=== PATIENT | female | born 1985 | race Caucasian/White ===

== ENCOUNTER 2017-01-08 17:20 | Emergency (ER) | payer MEDICAID ==
[~2017-01-08] VITALS: Ht 161.3 cm; Wt 88.9 kg
[~2017-01-08 17:20] MED LIST: AMOX-291 PO; CARI350T PO; CITA40TA5 PO; DIAZ5TAB PO; DIAZ5TAB4 PO; DULO30CA2 PO; HYDR-882 PO; HYDR2TAB29 PO; METH4TAB2 PO; METH500T97 PO; MORP-52 PO; MORP30TA81 PO; OXYC-307 PO; OXYC20TA2 PO; OXYC30TA PO; PREG75CA PO; TRAM50TA2 PO
[2017-01-08 17:24] VITALS: BP 150/91
== END 2017-01-08 19:31 | disposition left against medical advice (07) ==
LOC: ED 19:25
DX: Z53.21 Procedure and treatment not carried out due to patient leaving prior to being seen by health care provider (principal)

== ENCOUNTER 2018-01-13 14:02 | Emergency (ER) | payer MEDICAID ==
[~2018-01-13] VITALS: Ht 162.6 cm; Wt 60.0 kg
[~2018-01-13 14:02] MED LIST changes: +HYDR-3653 PO; -HYDR-882 PO
[2018-01-13] MEDS ORDERED: ONDANSETRON 2MG/ML, 2ML IVPush ONE (14:30)
[2018-01-13] MEDS ORDERED: SODIUM CHLORIDE FLUSH 10ML SYR IVF ONE (14:30)
[2018-01-13] MEDS ORDERED: MORPHINE SULFATE 4 MG/ML, 1ML ONE ×2 (14:35→15:30)
[2018-01-13] MEDS ORDERED: ONDANSETRON 2MG/ML, 2ML ONE (14:35)
[2018-01-13] MEDS: MORPHINE SULFATE 4 MG/ML, 1ML IVPush PRN ×2 (14:42→15:34)
[2018-01-13 14:48] LABS: BASOPHILS # (AUTO) 0.05 x10^3/uL (0-0.1); BASOPHILS % (AUTO) 0 % (0-1); EOSINOPHILS # (AUTO) 0.13 x10^3/uL (0-0.4); EOSINOPHILS % (AUTO) 1 % (1-7); LYMPHOCYTES % (AUTO) 18 % (22-44); MD NO; MEAN CORPUSCULAR HEMOGLOBIN 27.2 pg (27.0-34.8); MEAN CORPUSCULAR HGB CONC 33.2 g/dL (32.4-35.8); MEAN CORPUSCULAR VOLUME 82.1 fL (80-100); MEAN PLATELET VOLUME 9.7 fL (7.4-10.4); MONOCYTES # (AUTO) 0.88 x10^3/uL (0.2-0.8); MONOCYTES % (AUTO) 7 % (2-9); NEUTROPHILS # (AUTO) 8.73 x10^3/uL (1.8-6.8); NEUTROPHILS % (AUTO) 73 % (42-75); PLATELET COUNT 278 x10^3/uL (130-400); RED BLOOD COUNT 4.77 x10^6/uL (3.82-5.3); RED CELL DISTRIBUTION WIDTH 15.8 % (9.6-15.2)
[2018-01-13 14:57] LABS: ALANINE AMINOTRANSFERASE 27 U/L (12-78); ALBUMIN 3.4 g/dL (3.4-5.0); ANION GAP 11 mmol/L (5-15); CALCIUM 8.2 mg/dL (8.5-10.1); CHLORIDE 110 mmol/L (98-107); CREATININE 1.05 mg/dL (0.55-1.02)
[2018-01-13 15:00] LABS: MICROSCOPIC AUTO
[2018-01-13 15:01] LABS: ALKALINE PHOSPHATASE 112 U/L (45-117); BILIRUBIN,TOTAL 0.4 mg/dL (0.2-1.0); TOTAL PROTEIN 6.9 g/dL (6.4-8.2)
[2018-01-13 15:04] LABS: CULTURE INDICATED? NO
[2018-01-13 16:45] VITALS: BP 116/72
== END 2018-01-13 16:48 | disposition home or self-care (01) ==
LOC: ED 16:42
DX: K86.1 Other chronic pancreatitis (principal); N13.2 Hydronephrosis with renal and ureteral calculous obstruction
CPT/HCPCS: 36415; 74176; 80053; 81001; 83690; 84703; 85025; 96374; 96375; 96376; 99285; J2405

== ENCOUNTER 2019-01-08 10:38 | Emergency (ER) | payer MEDICAID ==
[~2019-01-08] VITALS: Ht 160 cm; Wt 87.1 kg
--- NOTE | 2019-01-08 11:14 | NUR ---
THIS IS A 33Y F THAT COMES IN FOR SINUS PAIN AND FACIAL SWELLING X1 WEEK. PT DENIES RECENT ILLNESS OR TRAUMA. PT STATES BLURRED VISION IN L EYE X2 DAYS. PT CONNECTED TO MONITORING VSS CALL LIGHT WITHIN REACH. DAUGHTER AT BEDSIDE.
--- NOTE | 2019-01-08 11:14 | NUR ---
PA AT BEDSIDE TO ASSESS PT
[2019-01-08 11:16] VITALS: BP 119/70
[2019-01-08] MEDS ORDERED: OXYcodone/APAP 5/325MG TABLET ONE (11:28)
[2019-01-08] MEDS ORDERED: ONDANSETRON ODT 4 MG ONE (11:28)
[2019-01-08] MEDS ORDERED: ONDANSETRON ODT 4 MG PO ONE (11:30)
[2019-01-08] MEDS ORDERED: OXYcodone/APAP 5/325MG TABLET PO ONE (11:30)
== END 2019-01-08 12:00 | disposition home or self-care (01) ==
LOC: ED 11:40
DX: J06.9 Acute upper respiratory infection, unspecified (principal); H05.012 Cellulitis of left orbit; R51 Headache; J45.909 Unspecified asthma, uncomplicated; F41.1 Generalized anxiety disorder; F17.210 Nicotine dependence, cigarettes, uncomplicated
CPT/HCPCS: 99283; Q0162

== ENCOUNTER 2019-01-18 00:05 | Inpatient (IN) | payer MEDICAID ==
[~2019-01-18] VITALS: Ht 160 cm; Wt 91.0 kg
[2019-01-18 01:41] LABS: BASOPHILS # (AUTO) 0.06 x10^3/uL (0-0.1); BASOPHILS % (AUTO) 1 % (0-1); EOSINOPHILS # (AUTO) 0.23 x10^3/uL (0-0.4); EOSINOPHILS % (AUTO) 3 % (1-7); LYMPHOCYTES # (AUTO) 3.62 x10^3/uL (1-3.4); LYMPHOCYTES % (AUTO) 40 % (22-44); MD NO; MEAN CORPUSCULAR HEMOGLOBIN 27.4 pg (27.0-34.8); MEAN CORPUSCULAR HGB CONC 32.3 g/dL (32.4-35.8); MEAN PLATELET VOLUME 9.6 fL (7.4-10.4); MONOCYTES # (AUTO) 0.76 x10^3/uL (0.2-0.8); MONOCYTES % (AUTO) 8 % (2-9); NEUTROPHILS # (AUTO) 4.47 x10^3/uL (1.8-6.8); NEUTROPHILS % (AUTO) 49 % (42-75); PLATELET COUNT 286 x10^3/uL (130-400); RED BLOOD COUNT 4.56 x10^6/uL (3.82-5.3)
[2019-01-18 01:55] LABS: ANION GAP 6 mmol/L (5-15); CALCIUM 8.8 mg/dL (8.5-10.1); CHLORIDE 105 mmol/L (98-107)
[2019-01-18] MEDS ORDERED: OXYcodone/APAP 5/325MG TABLET PO ONE (02:00)
--- NOTE | 2019-01-18 02:28 | NUR ---
PT BACK FROM CT SCAN. ASKING FOR PAIN MEDS.
[2019-01-18] MEDS ORDERED: VANCOMYCIN PER PHARMACY MC PRN ×3 (03:00→05:00)
[2019-01-18] MEDS ORDERED: MORPHINE SULFATE 4 MG/ML, 1ML ONE (03:00)
[2019-01-18] MEDS ORDERED: SODIUM CHLORIDE 0.9% 1,000ML IVBOLUS ONE (03:00)
[2019-01-18] MEDS ORDERED: MORPHINE SULFATE 4 MG/ML, 1ML IVPush PRN (03:00)
[2019-01-18] MEDS ORDERED: AMPICILLIN/SULBACTAM 3 GM in SODIUM CHLORIDE 0.9% 100 ML IV ONE (03:00)
[2019-01-18] MEDS ORDERED: ONDANSETRON 2MG/ML, 2ML IVPush ONE (03:00)
[2019-01-18] MEDS ORDERED: VANCOMYCIN 1,600 MG in SODIUM CHLORIDE 0.9% 250 ML IV ONE (03:30)
[2019-01-18] MEDS ORDERED: SODIUM CHLORIDE 0.9% 1,000 ML IV SCH (03:41)
[2019-01-18] MEDS ORDERED: morphine SULFATE 10 MG/ML, 1ML IVPush PRN (04:00)
[2019-01-18] MEDS ORDERED: ACETAMINOPHEN 325 MG TABLET PO PRN ×2 (04:00→05:00)
[2019-01-18] MEDS ORDERED: HYDROcodone/APAP 5/325 TABLET PO PRN (04:00)
[2019-01-18] MEDS ORDERED: ONDANSETRON 2MG/ML, 2ML IVPush PRN (04:00)
[2019-01-18 04:08] LABS: HCT (SEDRATE) 38.8 % (34.6-47.8)
--- NOTE | 2019-01-18 04:17 | NUR ---
PT TO MRI.
[2019-01-18] MEDS ORDERED: GADOTERATE 10 MMOL/20 ML SYR ONE (04:37)
[2019-01-18] MEDS ORDERED: AMPICILLIN/SULBACTAM 1,500 MG in SODIUM CHLORIDE 0.9% 50 ML IV SCH (05:00)
[2019-01-18] MEDS ORDERED: POLYETHYLENE GLYCOL 17 GM PACKET PO PRN (05:00)
[2019-01-18] MEDS ORDERED: PHARMACOKINETIC CONSULTATION MC ONE (06:00)
[2019-01-18] MEDS ORDERED: PHARMACOKINETIC MONITORING MC PRN (06:00)
[2019-01-18] MEDS ORDERED: VANCOMYCIN 1,600 MG in SODIUM CHLORIDE 0.9% 250 ML IV SCH (06:00)
[2019-01-18] MEDS ORDERED: OMNIPAQUE 350 MG/ML, 100ML BOTTLE ONE (06:23)
[2019-01-18 06:58] LABS: HEMOGLOBIN A1C 8.7 % (4.2-6.3)
[2019-01-18] MEDS: VANCOMYCIN 1,700 MG in SODIUM CHLORIDE 0.9% 250 ML IV SCH ×3 (07:06→22:00)
[2019-01-18] MEDS: SODIUM CHLORIDE 0.9% 1,000 ML IV SCH ×3 (07:06→22:01)
[2019-01-18] MEDS: HYDROcodone/APAP 5/325 TABLET PO PRN ×3 (07:33→22:00)
[2019-01-18] MEDS: CEFTRIAXONE PMX 2GM/50ML 50 ML IV SCH ×2 (08:54→18:46)
[2019-01-18] MEDS ORDERED: AMPICILLIN/SULBACTAM 3 GM in SODIUM CHLORIDE 0.9% 100 ML IV SCH (09:00)
[2019-01-18 14:00] VITALS: BP 102/70
[2019-01-18] MEDS ORDERED: INSULIN LISPRO 100 UNIT/ML, 3ML VIAL SQ-INSULIN PRN (15:30)
[2019-01-18] MEDS ORDERED: DEXTROSE 4 GM TAB.CHEW PO PRN (15:30)
[2019-01-18] MEDS ORDERED: DEXTROSE 50%, 50ML SYRINGE IVPush PRN (15:30)
[2019-01-18] MEDS ORDERED: GLUCAGON 1 MG IM PRN (15:30)
[2019-01-18] MEDS: ONDANSETRON 2MG/ML, 2ML IVPush PRN (16:18)
[2019-01-18 19:59] VITALS: BP 114/52
[2019-01-18] MEDS: SODIUM CHLORIDE FLUSH 10ML SYR IVF SCH (22:01)
[2019-01-19 01:59] VITALS: BP 96/64
[2019-01-19 06:15] LABS: BASOPHILS # (AUTO) 0.07 x10^3/uL (0-0.1); BASOPHILS % (AUTO) 1 % (0-1); EOSINOPHILS # (AUTO) 0.33 x10^3/uL (0-0.4); EOSINOPHILS % (AUTO) 4 % (1-7); LYMPHOCYTES # (AUTO) 3.33 x10^3/uL (1-3.4); LYMPHOCYTES % (AUTO) 41 % (22-44); MD NO; MEAN CORPUSCULAR HEMOGLOBIN 27.6 pg (27.0-34.8); MEAN CORPUSCULAR HGB CONC 32.2 g/dL (32.4-35.8); MEAN CORPUSCULAR VOLUME 85.5 fL (80-100); MEAN PLATELET VOLUME 10.2 fL (7.4-10.4); MONOCYTES # (AUTO) 0.64 x10^3/uL (0.2-0.8); MONOCYTES % (AUTO) 8 % (2-9); NEUTROPHILS # (AUTO) 3.78 x10^3/uL (1.8-6.8); NEUTROPHILS % (AUTO) 46 % (42-75); PLATELET COUNT 218 x10^3/uL (130-400); RED BLOOD COUNT 4.01 x10^6/uL (3.82-5.3); RED CELL DISTRIBUTION WIDTH 15.2 % (9.6-15.2)
[2019-01-19 06:17] LABS: HCG UR SG 1.039 (1.003-1.030)
[2019-01-19 06:24] LABS: ALANINE AMINOTRANSFERASE 41 U/L (12-78); ALBUMIN 2.7 g/dL (3.4-5.0); ANION GAP 4 mmol/L (5-15); CALCIUM 7.6 mg/dL (8.5-10.1); CHLORIDE 110 mmol/L (98-107); CHOLESTEROL, TOTAL 152 mg/dL (140-239); CREATININE 0.55 mg/dL (0.55-1.02)
[2019-01-19] MEDS: VANCOMYCIN 1,700 MG in SODIUM CHLORIDE 0.9% 250 ML IV SCH ×3 (06:24→22:22)
[2019-01-19 06:26] LABS: ALKALINE PHOSPHATASE 105 U/L (45-117); BILIRUBIN,TOTAL 0.1 mg/dL (0.2-1.0); CHOL/HDL RATIO 7.2; HDL CHOL % 14 % (28-40); HDL CHOLESTEROL (DIRECT) 21 mg/dL (40-60); LDL CHOLESTEROL,CALCULATED 92 mg/dL (54-169); LDL/HDL RATIO 4.4 (0.5-3.0); TOTAL PROTEIN 5.5 g/dL (6.4-8.2); TRIGLYCERIDES 197 mg/dL (50-200); VLDL CHOLESTEROL 39 mg/dL (0-25)
[2019-01-19] MEDS: CEFTRIAXONE PMX 2GM/50ML 50 ML IV SCH ×2 (08:06→19:33)
[2019-01-19] MEDS: SODIUM CHLORIDE FLUSH 10ML SYR IVF SCH (08:08)
[2019-01-19] MEDS: morphine SULFATE 10 MG/ML, 1ML IVPush PRN ×3 (08:31→18:34)
[2019-01-19 09:10] VITALS: BP 98/65
[2019-01-19] MEDS ORDERED: ONDANSETRON 2MG/ML, 2ML IV PRN (09:30)
[2019-01-19] MEDS ORDERED: LABETALOL 5MG/ML, 20ML IV PRN (09:30)
[2019-01-19] MEDS ORDERED: hydrALAzine 20 MG/ML, 1ML IV PRN (09:30)
[2019-01-19] MEDS ORDERED: ACETAMINOPHEN 325 MG TABLET PO PRN (09:30)
[2019-01-19] MEDS ORDERED: PROMETHAZINE 25 MG/ML, 1ML IV PRN (09:30)
[2019-01-19] MEDS ORDERED: HYDROmorphone 2 MG/ML, 1ML IVPush PRN (09:30)
[2019-01-19] MEDS ORDERED: MEPERIDINE/PF 25MG/ML,1ML IVPush PRN (09:30)
[2019-01-19] MEDS ORDERED: HYDROcodone/APAP 7.5-325MG/15ML UDC PO PRN (09:30)
[2019-01-19] MEDS ORDERED: EPHEDRINE 50 MG/ML, 1ML IVPush PRN (09:30)
[2019-01-19] MEDS ORDERED: FENTANYL PF 100 MCG/2ML IV PRN (09:30)
[2019-01-19] MEDS ORDERED: MIDAZOLAM 1 MG/ML, 2ML ONE (10:06)
[2019-01-19] MEDS ORDERED: FENTANYL PF 100 MCG/2ML ONE ×3 (10:06→11:27)
[2019-01-19] MEDS ORDERED: THROMBIN 5,000 UNIT VIAL TP ONE (10:13)
[2019-01-19] MEDS ORDERED: COCAINE TOPICAL SOLN 4%, 4ML ONE (10:13)
[2019-01-19] MEDS ORDERED: LIDOCAINE 1%-EPI 1:100K, 20ML ONE (10:14)
[2019-01-19] MEDS ORDERED: OXYMETAZOLINE NASAL SPRAY 0.05%, 15ML ONE (10:14)
[2019-01-19] MEDS ORDERED: LIDOCAINE 1%-EPI 1:100K, 20ML INFIL ONE (11:03)
[2019-01-19] MEDS ORDERED: GLYCOPYRROLATE 0.2MG/1ML, 5ML ONE (11:11)
[2019-01-19] MEDS ORDERED: CEFAZOLIN 1,000 MG ONE (11:11)
[2019-01-19] MEDS ORDERED: SUCCINYLCHOLINE 20 MG/ML, 10ML ONE (11:11)
[2019-01-19] MEDS ORDERED: ONDANSETRON 2MG/ML, 2ML ONE (11:11)
[2019-01-19] MEDS ORDERED: PROPOFOL 10 MG/ML, 20ML ONE (11:11)
[2019-01-19] MEDS ORDERED: DEXAMETHASONE 4 MG/ML, 1ML ONE (11:11)
[2019-01-19] MEDS ORDERED: ROCURONIUM 10MG/ML,5ML ONE (11:11)
[2019-01-19] MEDS ORDERED: KETOROLAC 30 MG/1 ML ONE (11:11)
[2019-01-19] MEDS ORDERED: NEOSTIGMINE 1 MG/ML, 10ML ONE (11:11)
[2019-01-19] MEDS ORDERED: EPHEDRINE 50 MG/ML, 1ML ONE (11:28)
[2019-01-19] MEDS: INSULIN LISPRO 100 UNITS/ML, PEN SQ-INSULIN PRN ×2 (13:08→17:13)
[2019-01-19] MEDS: SODIUM CHLORIDE 0.9% 1,000 ML IV SCH (14:00)
[2019-01-19 14:23] VITALS: BP 101/61
[2019-01-19] MEDS ORDERED: OXYMETAZOLINE NASAL SPRAY 0.05%, 15ML NAS PRN (15:00)
[2019-01-19] MEDS: SODIUM CHLORIDE NASAL SPRAY 45ML BOTTLE NAS SCH ×2 (18:34→21:00)
[2019-01-19 19:02] VITALS: BP 106/67
[2019-01-19] MEDS: SODIUM CHLORIDE FLUSH 3ML SYRINGE IVF SCH (19:38)
[2019-01-19] MEDS: HYDROcodone/APAP 5/325 TABLET PO PRN ×2 (22:23→23:01)
[2019-01-19 22:55] VITALS: BP 106/57
[2019-01-20 03:55] VITALS: BP_SYST 112; BP_SYST 86; BP_DIAS 58; BP_DIAS 73
[2019-01-20] MEDS: HYDROcodone/APAP 5/325 TABLET PO PRN ×3 (04:10→20:02)
[2019-01-20] MEDS: SODIUM CHLORIDE NASAL SPRAY 45ML BOTTLE NAS SCH ×4 (06:00→20:03)
[2019-01-20] MEDS: VANCOMYCIN 1,700 MG in SODIUM CHLORIDE 0.9% 250 ML IV SCH ×2 (06:39→14:48)
[2019-01-20 06:52] LABS: ANION GAP 3 mmol/L (5-15); CHLORIDE 110 mmol/L (98-107)
[2019-01-20 06:55] LABS: CALCIUM 8.4 mg/dL (8.5-10.1); CREATININE 0.69 mg/dL (0.55-1.02)
[2019-01-20 07:02] LABS: BASOPHILS # (AUTO) 0.02 x10^3/uL (0-0.1); BASOPHILS % (AUTO) 0 % (0-1); EOSINOPHILS # (AUTO) 0.12 x10^3/uL (0-0.4); EOSINOPHILS % (AUTO) 1 % (1-7); LYMPHOCYTES # (AUTO) 1.63 x10^3/uL (1-3.4); LYMPHOCYTES % (AUTO) 10 % (22-44); MD NO; MEAN CORPUSCULAR HEMOGLOBIN 27.5 pg (27.0-34.8); MEAN CORPUSCULAR HGB CONC 32.5 g/dL (32.4-35.8); MEAN CORPUSCULAR VOLUME 84.7 fL (80-100); MEAN PLATELET VOLUME 10.6 fL (7.4-10.4); MONOCYTES # (AUTO) 0.69 x10^3/uL (0.2-0.8); MONOCYTES % (AUTO) 4 % (2-9); NEUTROPHILS # (AUTO) 14.79 x10^3/uL (1.8-6.8); NEUTROPHILS % (AUTO) 86 % (42-75); PLATELET COUNT 268 x10^3/uL (130-400); RED BLOOD COUNT 3.94 x10^6/uL (3.82-5.3); RED CELL DISTRIBUTION WIDTH 14.6 % (9.6-15.2)
[2019-01-20 07:28] VITALS: BP 99/64
[2019-01-20] MEDS: INSULIN LISPRO 100 UNITS/ML, PEN SQ-INSULIN PRN ×3 (08:09→16:53)
[2019-01-20] MEDS: CEFTRIAXONE PMX 2GM/50ML 50 ML IV SCH ×2 (08:25→20:03)
[2019-01-20] MEDS: ENOXAPARIN 40 MG/0.4 ML SQ SCH (08:25)
[2019-01-20] MEDS: SODIUM CHLORIDE FLUSH 3ML SYRINGE IVF SCH ×2 (08:29→20:04)
[2019-01-20 13:59] VITALS: BP 102/66
[2019-01-20] MEDS: metroNIDAZOLE 500 MG TABLET PO SCH (18:45)
[2019-01-20 19:57] VITALS: BP 114/64
[2019-01-21 01:13] VITALS: BP 115/72
[2019-01-21] MEDS: metroNIDAZOLE 500 MG TABLET PO SCH ×3 (02:22→17:13)
[2019-01-21] MEDS: HYDROcodone/APAP 5/325 TABLET PO PRN ×5 (02:25→21:30)
[2019-01-21 06:12] LABS: BASOPHILS # (AUTO) 0.06 x10^3/uL (0-0.1); BASOPHILS % (AUTO) 1 % (0-1); EOSINOPHILS # (AUTO) 0.22 x10^3/uL (0-0.4); EOSINOPHILS % (AUTO) 2 % (1-7); LYMPHOCYTES # (AUTO) 3.46 x10^3/uL (1-3.4); LYMPHOCYTES % (AUTO) 32 % (22-44); MD NO; MEAN CORPUSCULAR HEMOGLOBIN 27.6 pg (27.0-34.8); MEAN CORPUSCULAR HGB CONC 32.1 g/dL (32.4-35.8); MEAN PLATELET VOLUME 10.6 fL (7.4-10.4); MONOCYTES # (AUTO) 0.64 x10^3/uL (0.2-0.8); MONOCYTES % (AUTO) 6 % (2-9); NEUTROPHILS # (AUTO) 6.62 x10^3/uL (1.8-6.8); NEUTROPHILS % (AUTO) 60 % (42-75); PLATELET COUNT 225 x10^3/uL (130-400); RED BLOOD COUNT 3.72 x10^6/uL (3.82-5.3); RED CELL DISTRIBUTION WIDTH 15.4 % (9.6-15.2)
[2019-01-21 06:52] VITALS: BP 112/77
[2019-01-21] MEDS: SODIUM CHLORIDE NASAL SPRAY 45ML BOTTLE NAS SCH ×4 (06:57→21:15)
[2019-01-21] MEDS: SODIUM CHLORIDE FLUSH 3ML SYRINGE IVF SCH ×2 (09:00→21:00)
[2019-01-21] MEDS: metFORMIN 500 MG TABLET PO SCH ×2 (09:10→17:13)
[2019-01-21] MEDS: ENOXAPARIN 40 MG/0.4 ML SQ SCH (09:10)
[2019-01-21] MEDS: CEFTRIAXONE PMX 2GM/50ML 50 ML IV SCH ×2 (09:11→21:15)
[2019-01-21 13:06] VITALS: BP 142/90
[2019-01-21] MEDS: IRON SUCROSE COMPLEX 100MG/5ML IV SCH (13:31)
[2019-01-21] MEDS: NICOTINE 14MG/24 HR PATCH.TD24 TD SCH (15:35)
[2019-01-21 19:40] VITALS: BP 135/78
[2019-01-22 00:58] VITALS: BP 116/79
[2019-01-22] MEDS: metroNIDAZOLE 500 MG TABLET PO SCH ×3 (02:35→17:55)
[2019-01-22] MEDS: HYDROcodone/APAP 5/325 TABLET PO PRN ×5 (02:37→22:03)
[2019-01-22] MEDS: SODIUM CHLORIDE NASAL SPRAY 45ML BOTTLE NAS SCH ×4 (06:45→21:24)
[2019-01-22 08:01] VITALS: BP 129/85
[2019-01-22] MEDS: ONDANSETRON 2MG/ML, 2ML IVPush PRN ×2 (08:16→21:24)
[2019-01-22] MEDS: metFORMIN 500 MG TABLET PO SCH ×2 (08:16→17:55)
[2019-01-22] MEDS: IRON SUCROSE COMPLEX 100MG/5ML IV SCH (08:16)
[2019-01-22] MEDS: ENOXAPARIN 40 MG/0.4 ML SQ SCH (08:17)
[2019-01-22] MEDS: SODIUM CHLORIDE FLUSH 3ML SYRINGE IVF SCH ×2 (08:17→21:00)
[2019-01-22] MEDS: CEFTRIAXONE PMX 2GM/50ML 50 ML IV SCH ×2 (09:38→21:24)
[2019-01-22 13:44] VITALS: BP 129/86
[2019-01-22] MEDS: NICOTINE 14MG/24 HR PATCH.TD24 TD SCH (15:57)
[2019-01-22 20:16] VITALS: BP 135/91
[2019-01-23] MEDS: metroNIDAZOLE 500 MG TABLET PO SCH ×3 (02:04→16:55)
[2019-01-23] MEDS: HYDROcodone/APAP 5/325 TABLET PO PRN ×5 (03:18→21:25)
[2019-01-23 03:22] VITALS: BP 146/92
[2019-01-23] MEDS: SODIUM CHLORIDE NASAL SPRAY 45ML BOTTLE NAS SCH ×4 (05:55→21:26)
[2019-01-23 08:25] VITALS: BP 129/86
[2019-01-23] MEDS: ENOXAPARIN 40 MG/0.4 ML SQ SCH (08:28)
[2019-01-23] MEDS: metFORMIN 500 MG TABLET PO SCH ×2 (08:29→16:55)
[2019-01-23] MEDS: IRON SUCROSE COMPLEX 100MG/5ML IV SCH (09:42)
[2019-01-23] MEDS: SODIUM CHLORIDE FLUSH 3ML SYRINGE IVF SCH ×2 (09:42→21:00)
[2019-01-23] MEDS: CEFTRIAXONE PMX 2GM/50ML 50 ML IV SCH ×2 (09:42→21:25)
[2019-01-23 14:08] VITALS: BP 132/85
[2019-01-23] MEDS: NICOTINE 14MG/24 HR PATCH.TD24 TD SCH (16:23)
[2019-01-23 21:07] VITALS: BP 135/85
[2019-01-23] MEDS: ONDANSETRON 2MG/ML, 2ML IVPush PRN (21:25)
[2019-01-24 02:30] VITALS: BP 138/78
[2019-01-24] MEDS: metroNIDAZOLE 500 MG TABLET PO SCH ×3 (02:32→16:52)
[2019-01-24] MEDS: HYDROcodone/APAP 5/325 TABLET PO PRN ×4 (02:35→22:05)
[2019-01-24] MEDS: SODIUM CHLORIDE NASAL SPRAY 45ML BOTTLE NAS SCH ×4 (05:29→20:57)
[2019-01-24] MEDS ORDERED: ACETAMINOPHEN 325 MG TABLET PO PRN (08:30)
[2019-01-24] MEDS: metFORMIN 500 MG TABLET PO SCH ×2 (08:35→16:52)
[2019-01-24] MEDS: FERROUS SULFATE 325 MG TABLET PO SCH ×2 (08:35→16:52)
[2019-01-24] MEDS: ENOXAPARIN 40 MG/0.4 ML SQ SCH (08:36)
[2019-01-24] MEDS: LISINOPRIL 5 MG TABLET PO SCH (08:36)
[2019-01-24] MEDS: IBUPROFEN 600 MG TABLET PO PRN ×3 (08:36→20:56)
[2019-01-24] MEDS: SODIUM CHLORIDE FLUSH 3ML SYRINGE IVF SCH ×2 (08:43→20:57)
[2019-01-24] MEDS: CEFTRIAXONE PMX 2GM/50ML 50 ML IV SCH ×2 (08:43→20:57)
[2019-01-24 09:34] VITALS: BP 113/74
[2019-01-24 13:10] VITALS: BP 128/81
[2019-01-24] MEDS: NICOTINE 14MG/24 HR PATCH.TD24 TD SCH (16:53)
[2019-01-24 19:27] VITALS: BP 120/81
[2019-01-25 01:36] VITALS: BP 117/78
[2019-01-25] MEDS: metroNIDAZOLE 500 MG TABLET PO SCH ×3 (02:21→18:03)
[2019-01-25] MEDS: IBUPROFEN 600 MG TABLET PO PRN ×4 (03:01→21:53)
[2019-01-25] MEDS: HYDROcodone/APAP 5/325 TABLET PO PRN ×5 (03:40→22:40)
[2019-01-25 04:20] LABS: BASOPHILS # (AUTO) 0.04 x10^3/uL (0-0.1); BASOPHILS % (AUTO) 1 % (0-1); EOSINOPHILS # (AUTO) 0.34 x10^3/uL (0-0.4); EOSINOPHILS % (AUTO) 4 % (1-7); LYMPHOCYTES # (AUTO) 3.01 x10^3/uL (1-3.4); LYMPHOCYTES % (AUTO) 38 % (22-44); MD NO; MEAN CORPUSCULAR HEMOGLOBIN 27.8 pg (27.0-34.8); MEAN CORPUSCULAR HGB CONC 32.2 g/dL (32.4-35.8); MEAN CORPUSCULAR VOLUME 86.4 fL (80-100); MEAN PLATELET VOLUME 10.1 fL (7.4-10.4); MONOCYTES # (AUTO) 0.73 x10^3/uL (0.2-0.8); MONOCYTES % (AUTO) 9 % (2-9); NEUTROPHILS # (AUTO) 3.72 x10^3/uL (1.8-6.8); NEUTROPHILS % (AUTO) 47 % (42-75); PLATELET COUNT 282 x10^3/uL (130-400); RED BLOOD COUNT 3.92 x10^6/uL (3.82-5.3); RED CELL DISTRIBUTION WIDTH 15.6 % (9.6-15.2)
[2019-01-25 04:24] LABS: CREATININE 0.59 mg/dL (0.55-1.02)
[2019-01-25] MEDS: SODIUM CHLORIDE NASAL SPRAY 45ML BOTTLE NAS SCH ×4 (05:23→21:12)
[2019-01-25 06:51] VITALS: BP 117/80
[2019-01-25] MEDS: metFORMIN 500 MG TABLET PO SCH ×2 (08:51→17:05)
[2019-01-25] MEDS: FERROUS SULFATE 325 MG TABLET PO SCH ×2 (08:51→17:05)
[2019-01-25] MEDS: LISINOPRIL 5 MG TABLET PO SCH (08:51)
[2019-01-25] MEDS: ENOXAPARIN 40 MG/0.4 ML SQ SCH (08:51)
[2019-01-25] MEDS: CEFTRIAXONE PMX 2GM/50ML 50 ML IV SCH ×2 (08:53→21:11)
[2019-01-25] MEDS: SODIUM CHLORIDE FLUSH 3ML SYRINGE IVF SCH ×2 (08:53→21:00)
[2019-01-25 14:19] VITALS: BP 119/83
[2019-01-25] MEDS: NICOTINE 14MG/24 HR PATCH.TD24 TD SCH (15:43)
[2019-01-25 19:51] VITALS: BP 122/86
[2019-01-25] MEDS: hydrOXyzine 50MG TABLET PO PRN (21:53)
[2019-01-26] MEDS: metroNIDAZOLE 500 MG TABLET PO SCH ×3 (02:04→16:44)
[2019-01-26 02:11] VITALS: BP 142/94
[2019-01-26] MEDS: SODIUM CHLORIDE NASAL SPRAY 45ML BOTTLE NAS SCH ×4 (06:21→21:07)
[2019-01-26] MEDS: IBUPROFEN 600 MG TABLET PO PRN ×2 (08:15→19:29)
[2019-01-26] MEDS: LISINOPRIL 5 MG TABLET PO SCH (08:16)
[2019-01-26] MEDS: ENOXAPARIN 40 MG/0.4 ML SQ SCH (08:16)
[2019-01-26] MEDS: FERROUS SULFATE 325 MG TABLET PO SCH ×2 (08:16→16:45)
[2019-01-26] MEDS: metFORMIN 500 MG TABLET PO SCH ×2 (08:16→16:45)
[2019-01-26 08:31] VITALS: BP 128/79
[2019-01-26] MEDS: HYDROcodone/APAP 5/325 TABLET PO PRN ×3 (09:01→20:56)
[2019-01-26] MEDS: CEFTRIAXONE PMX 2GM/50ML 50 ML IV SCH ×2 (09:01→20:57)
[2019-01-26] MEDS: SODIUM CHLORIDE FLUSH 3ML SYRINGE IVF SCH ×2 (09:02→20:58)
[2019-01-26 12:50] VITALS: BP 131/81
[2019-01-26] MEDS: NICOTINE 14MG/24 HR PATCH.TD24 TD SCH (15:17)
[2019-01-26 19:24] VITALS: BP 134/87
[2019-01-26] MEDS: hydrOXyzine 50MG TABLET PO PRN (21:08)
[2019-01-27] MEDS: metroNIDAZOLE 500 MG TABLET PO SCH ×2 (01:05→10:10)
[2019-01-27] MEDS: HYDROcodone/APAP 5/325 TABLET PO PRN ×2 (01:05→08:33)
[2019-01-27 02:09] VITALS: BP 133/87
[2019-01-27] MEDS: SODIUM CHLORIDE NASAL SPRAY 45ML BOTTLE NAS SCH ×2 (07:24→11:00)
[2019-01-27] MEDS: IBUPROFEN 600 MG TABLET PO PRN (07:24)
[2019-01-27 07:40] VITALS: BP 125/81
[2019-01-27] MEDS: ENOXAPARIN 40 MG/0.4 ML SQ SCH (08:30)
[2019-01-27] MEDS: FERROUS SULFATE 325 MG TABLET PO SCH (08:33)
[2019-01-27] MEDS: LISINOPRIL 5 MG TABLET PO SCH (08:33)
[2019-01-27] MEDS: metFORMIN 500 MG TABLET PO SCH (08:33)
[2019-01-27] MEDS: CEFTRIAXONE PMX 2GM/50ML 50 ML IV SCH (08:34)
[2019-01-27] MEDS: SODIUM CHLORIDE FLUSH 3ML SYRINGE IVF SCH (08:34)
[2019-01-27] MEDS ORDERED: LISI5TAB7 PO (10:45)
[2019-01-27] MEDS ORDERED: METF500T PO (10:51)
[2019-01-27 12:40] LABS: ALANINE AMINOTRANSFERASE 45 U/L (12-78); ALBUMIN 3.4 g/dL (3.4-5.0); ANION GAP 8 mmol/L (5-15); C-REACTIVE PROTEIN, QUANT 0.81 mg/dL (0.02-0.49); CALCIUM 8.8 mg/dL (8.5-10.1); CHLORIDE 109 mmol/L (98-107)
[2019-01-27 12:41] LABS: CREATININE 0.57 mg/dL (0.55-1.02)
[2019-01-27 12:42] LABS: ALKALINE PHOSPHATASE 93 U/L (45-117); BASOPHILS # (AUTO) 0.07 x10^3/uL (0-0.1); BASOPHILS % (AUTO) 1 % (0-1); BILIRUBIN,TOTAL 0.3 mg/dL (0.2-1.0); EOSINOPHILS # (AUTO) 0.42 x10^3/uL (0-0.4); EOSINOPHILS % (AUTO) 5 % (1-7); LYMPHOCYTES # (AUTO) 2.57 x10^3/uL (1-3.4); LYMPHOCYTES % (AUTO) 30 % (22-44); MD NO; MEAN CORPUSCULAR HEMOGLOBIN 27.6 pg (27.0-34.8); MEAN CORPUSCULAR HGB CONC 32.6 g/dL (32.4-35.8); MEAN CORPUSCULAR VOLUME 84.8 fL (80-100); MEAN PLATELET VOLUME 10.3 fL (7.4-10.4); MONOCYTES # (AUTO) 0.75 x10^3/uL (0.2-0.8); MONOCYTES % (AUTO) 9 % (2-9); NEUTROPHILS # (AUTO) 4.92 x10^3/uL (1.8-6.8); NEUTROPHILS % (AUTO) 56 % (42-75); PLATELET COUNT 293 x10^3/uL (130-400); RED BLOOD COUNT 4.27 x10^6/uL (3.82-5.3); RED CELL DISTRIBUTION WIDTH 15.8 % (9.6-15.2); TOTAL PROTEIN 6.8 g/dL (6.4-8.2)
[2019-01-27 13:32] VITALS: BP 120/68
[2019-01-27 14:11] LABS: HCT (SEDRATE) 36.2 % (34.6-47.8)
== END 2019-01-27 13:51 | disposition home health service (06) | DRG 131 ==
LOC: ED 01:50 → EDIP 03:28 → 3N 05:01 → 4NE 01-19 22:52 → DCLOUNGE 01-27 13:20
PROVIDERS: ADMIT Family Medicine; ATTEND Internal Medicine
PROC: 0NTG0ZZ Resection of Left Ethmoid Bone, Open Approach (ICD-10-PCS; 2019-01-19)
PROC: 099R0ZZ Drainage of Left Maxillary Sinus, Open Approach (ICD-10-PCS; 2019-01-19)
PROC: 099Q0ZZ Drainage of Right Maxillary Sinus, Open Approach (ICD-10-PCS; 2019-01-19)
PROC: 02HV33Z Insertion of Infusion Device into Superior Vena Cava, Percutaneous Approach (ICD-10-PCS; principal; 2019-01-21)
PROC: B5181ZA Fluoroscopy of Superior Vena Cava using Low Osmolar Contrast, Guidance (ICD-10-PCS; 2019-01-21)
PROC: B548ZZA Ultrasonography of Superior Vena Cava, Guidance (ICD-10-PCS; 2019-01-21)
DX: J01.10 Acute frontal sinusitis, unspecified (principal); G03.9 Meningitis, unspecified; M86.18 Other acute osteomyelitis, other site; E11.69 Type 2 diabetes mellitus with other specified complication; D63.8 Anemia in other chronic diseases classified elsewhere; D72.828 Other elevated white blood cell count; F17.200 Nicotine dependence, unspecified, uncomplicated; F41.1 Generalized anxiety disorder; H53.2 Diplopia; I10 Essential (primary) hypertension; J32.0 Chronic maxillary sinusitis; J32.1 Chronic frontal sinusitis; J32.2 Chronic ethmoidal sinusitis; R04.0 Epistaxis; Z83.3 Family history of diabetes mellitus; Z87.442 Personal history of urinary calculi
CPT/HCPCS: 36415; 36573; 70486; 70487; 70553; 80048; 80053; 80061; 80202; 81025; 82043; 82565; 82728; 82962; 83036; 83540; 83550; 84703; 85025; 85651; 86140; 87040; 87081; 88304; 88311; 93005; 96365; 96375; G0378; J0295; J0690; J0696; J1100; J1650; J1756; J1885; J2250; J2405; J2704; J2710; J3010; J3370; J3490; Q9967; A9575; C1751; J0330; J1815; J1817; J2270; J7030; J7050